=== PATIENT | male | born 1945 | race Caucasian/White ===

== ENCOUNTER 2016-06-02 15:49 | Emergency (ER) | payer SELFPAY ==
[2016-06-02 16:43] LABS: BASO % 0.2 % (0.2-1.2); EOS % 0.6 % (0.8-7.0); GRAN # 4.6 10_X3_uL (1.8-5.4); GRAN % 70.4 % (34.0-67.9); HEMATOCRIT 45.4 % (40-51); HEMOGLOBIN 15.2 g/dL (13.7-17.5); LYMPH # 1.5 10_X3_uL (1.3-3.6); LYMPH % 22.8 % (21.8-53.1); MEAN CORPUSCULAR HEMOGLOBIN 30.3 pg (27.0-33.0); MEAN CORPUSCULAR HGB CONC 33.5 g/dL (32.0-36.0); MEAN CORPUSCULAR VOLUME 90.6 fL (79-92); MEAN PLATELET VOLUME 10.8 fl (7.5-11.5); MONO # 0.4 10_X3_uL (0.3-0.8); PLATELET COUNT 162 x10_3/uL (163-337); RED BLOOD COUNT 5.01 x10_6/uL (4.6-6.1); RED CELL DISTRIBUTION WIDTH 15.6 % (11.6-14.4); WHITE BLOOD COUNT 6.5 x10_3/uL (4.2-9.1)
[2016-06-02 17:00] LABS: ALBUMIN 4.3 gm/dL (3.4-5.0); ALKALINE PHOSPHATASE 94 U/L (50-136); ALT/SGPT 13 U/L (7.53-40.17); AST/SGOT 17 U/L (6.66-35.34); BILIRUBIN,TOTAL 0.59 mg/dL (0.0-1.0); BLOOD UREA NITROGEN 13 mg/dL (7-18); CALCIUM 9.4 mg/dL (8.7-10.7); CARBON DIOXIDE 26 mmol/L (21-32); CREATINE KINASE 58 U/L (35-232); CREATININE 0.9 mg/dL (0.6-1.3); GLUCOSE,RANDOM 124 mg/dL (70-99); POTASSIUM 3.9 mmol/L (3.5-5.1); SODIUM 140 mmol/L (136-145); TOTAL PROTEIN 7.5 gm/dL (6.4-8.2)
== END 2016-06-02 22:28 | disposition short-term general hospital (02) ==
LOC: ER 15:49
PROVIDERS: Emergency Medicine
DX: R27.0 Ataxia, unspecified (principal); R53.1 Weakness; M51.36 Other intervertebral disc degeneration, lumbar region; I51.9 Heart disease, unspecified; E11.9 Type 2 diabetes mellitus without complications; I10 Essential (primary) hypertension; G89.29 Other chronic pain; M54.9 Dorsalgia, unspecified; F17.210 Nicotine dependence, cigarettes, uncomplicated; Z79.899 Other long term (current) drug therapy; Z79.84 Long term (current) use of oral hypoglycemic drugs
CPT/HCPCS: 36415; 70450; 71010; 72131; 80053; 82550; 82553; 85025; 93005; 99070; 99284; 99285-25

== ENCOUNTER 2016-07-22 23:06 | Emergency (ER) | payer SELFPAY ==
[2016-07-22 23:50] LABS: BASO % 0.3 % (0.2-1.2); EOS # 0.1 10_X3_uL (0.0-0.5); EOS % 1.6 % (0.8-7.0); GRAN # 4.3 10_X3_uL (1.8-5.4); GRAN % 70.5 % (34.0-67.9); HEMATOCRIT 42.3 % (40-51); HEMOGLOBIN 14.7 g/dL (13.7-17.5); LYMPH # 1.4 10_X3_uL (1.3-3.6); LYMPH % 21.9 % (21.8-53.1); MEAN CORPUSCULAR HGB CONC 34.8 g/dL (32.0-36.0); MEAN CORPUSCULAR VOLUME 89.2 fL (79-92); MEAN PLATELET VOLUME 10.4 fl (7.5-11.5); MONO # 0.4 10_X3_uL (0.3-0.8); MONO % 5.7 % (5.3-12.2); PLATELET COUNT 147 x10_3/uL (163-337); RED BLOOD COUNT 4.74 x10_6/uL (4.6-6.1); RED CELL DISTRIBUTION WIDTH 15.5 % (11.6-14.4); WHITE BLOOD COUNT 6.2 x10_3/uL (4.2-9.1)
[2016-07-23 00:03] LABS: BLOOD UREA NITROGEN 14 mg/dL (7-18); CALCIUM 9.5 mg/dL (8.7-10.7); CARBON DIOXIDE 23 mmol/L (21-32); CREATININE 0.8 mg/dL (0.6-1.3); GLUCOSE,RANDOM 119 mg/dL (70-99); POTASSIUM 3.9 mmol/L (3.5-5.1); SODIUM 144 mmol/L (136-145)
== END 2016-07-23 01:38 | disposition short-term general hospital (02) ==
LOC: ER 23:06
PROVIDERS: General Practice
DX: I63.9 Cerebral infarction, unspecified (principal); R29.810 Facial weakness; R53.1 Weakness; I25.2 Old myocardial infarction; I10 Essential (primary) hypertension; G31.9 Degenerative disease of nervous system, unspecified; E66.01 Morbid (severe) obesity due to excess calories; E11.9 Type 2 diabetes mellitus without complications; F17.210 Nicotine dependence, cigarettes, uncomplicated; Z79.84 Long term (current) use of oral hypoglycemic drugs; Z79.899 Other long term (current) drug therapy
CPT/HCPCS: 36415; 70450; 80048; 85025; 93005; 96374; 99070; 99284; 99285-25